=== PATIENT | male | born 1930 | race African-American/Black ===

== ENCOUNTER 2017-06-07 09:57 | Day surgery (SDC) | payer MEDICARE, BC ==
[~2017-06-07] VITALS: Ht 175.3 cm; Wt 61.7 kg
[~2017-06-07 09:57] MED LIST: ATEN-175 PO; ATOR20TA PO; CLOP75TA16 PO; COR3 PO; FAMO40TA7 PO; FERR1TAB51 PO; METO25TA6 PO; TOLT4CAP PO; VIAG100 PO
[2017-06-07] MEDS ORDERED: IODIXANOL 320MG/ML 100 ML BOTTLE IV ONE (11:16)
[2017-06-07] MEDS ORDERED: MIDAZOLAM HCL 2 MG/2 ML VIAL ONE (11:21)
[2017-06-07] MEDS ORDERED: FENTANYL CITRATE/PF 50MCG/ML 2ML VIAL ONE (11:21)
[2017-06-07] MEDS ORDERED: MORPHINE SULFATE 2 MG/ML CPJ (NOT FOR IM USE) IV PRN (14:00)
[2017-06-07] MEDS ORDERED: ACETAMINOPHEN 325MG TABLET PO PRN (14:00)
[2017-06-07] MEDS ORDERED: ONDANSETRON HCL 4MG/2ML VIAL IV PRN (14:00)
[2017-06-07] MEDS ORDERED: ATROPINE SULFATE 1MG/10ML SYR IV PRN (14:00)
== END 2017-06-07 18:30 | disposition home or self-care (01) ==
LOC: CCL 09:57
PROVIDERS: ATTEND Specialist
DX: I70.212 Atherosclerosis of native arteries of extremities with intermittent claudication, left leg (principal)
CPT/HCPCS: 36247; 75710; 99152; 99153; C1760; C1769; C1893; J1644; J2250; J3010; Q9967

== ENCOUNTER 2019-01-30 10:48 | Inpatient (IN) | payer MEDICARE, BC ==
[~2019-01-30] VITALS: Ht 170.2 cm; Wt 58.5 kg
[~2019-01-30 10:48] MED LIST changes: -CLOP75TA16 PO; +CLOP75TA4 PO
[2019-01-30] MEDS ORDERED: SODIUM CHLORIDE 0.45% 1,000 ML IV SCH (11:45)
[2019-01-30] MEDS ORDERED: NITROGLYCERIN 0.4MG TABLET SL SL ONE (11:59)
[2019-01-30] MEDS ORDERED: ASPI-1158 MT (12:10)
[2019-01-30] MEDS ORDERED: IODIXANOL 320MG/ML 100 ML BOTTLE IV ONE (12:38)
[2019-01-30] MEDS ORDERED: LIDOCAINE HCL 1% 20ML VIAL (Pyxis) INJ ONE (12:38)
[2019-01-30] MEDS ORDERED: MIDAZOLAM HCL 2 MG/2 ML VIAL ONE (13:26)
[2019-01-30] MEDS ORDERED: FENTANYL CITRATE/PF 50MCG/ML 2ML VIAL ONE (13:26)
[2019-01-30] MEDS ORDERED: HEPARIN SODIUM 1,000 UNIT/1ML VIAL IV ONE (14:00)
[2019-01-30] MEDS ORDERED: NITROGLYCERIN 50MCG/ML 10ML VIAL (CATH LAB) IV ONE (14:00)
[2019-01-30] MEDS ORDERED: NICARDIPINE 100MCG/ML 10ML VIAL (CATH LAB) IV ONE (14:00)
[2019-01-30] MEDS ORDERED: FUROSEMIDE 40MG/4ML VIAL ONE (14:25)
[2019-01-30] MEDS ORDERED: ATROPINE SULFATE 1MG/10ML SYR IV PRN (14:30)
[2019-01-30] MEDS ORDERED: ONDANSETRON HCL 4MG/2ML INJ IV PRN (14:30)
[2019-01-30] MEDS ORDERED: ACETAMINOPHEN 325MG TABLET PO PRN (14:30)
[2019-01-30 16:00] VITALS: BP 140/83
[2019-01-30] MEDS ORDERED: PANTOPRAZOLE SODIUM 40 MG/VIAL IV NR (16:00)
[2019-01-30 16:21] VITALS: BP 130/95
[2019-01-30 16:26] LABS: CHLORIDE 116 mEq/L (98-107)
[2019-01-30] MEDS ORDERED: SORBITOL 70% SOLN 30ML PO NR ×2 (16:30→20:30)
[2019-01-30 16:32] LABS: TOTAL IRON BINDING CAPACITY 366 ug/dL (250-450)
[2019-01-30 18:00] VITALS: BP 116/55
[2019-01-30 20:00] VITALS: BP 120/70
[2019-01-30] MEDS: CARVEDILOL 3.125 MG TABLET PO SCH (21:40)
[2019-01-30] MEDS: AMLODIPINE 2.5MG TABLET PO SCH (21:41)
[2019-01-30 22:00] VITALS: BP 133/73
[2019-01-31] VITALS (20 sets, daily range): BP systolic 94–168; BP diastolic 38–69
[2019-01-31] MEDS: SODIUM CHLORIDE 0.9% INJ 3ML FLUSH IVF SCH ×3 (06:00→22:30)
[2019-01-31 07:21] LABS: HEMATOCRIT. 23.4 % (42.0-52.0); HEMOGLOBIN. 7.4 g/dL (14.0-18.0); MEAN CORPUSCULAR VOLUME 100.6 fL (80.0-94.0); MEAN PLATELET VOLUME 8.4 fl (7.4-10.4); PLATELET 468 x1000/uL (130-400); RED BLOOD CELL COUNT 2.32 mill/uL (4.7-6.1); RED CELL DISTRIBUTION WIDTH 19.3 % (11.6-14.6)
[2019-01-31] MEDS: PANTOPRAZOLE SODIUM 40 MG/VIAL IV SCH (08:29)
[2019-01-31] MEDS: AMLODIPINE 2.5MG TABLET PO SCH ×2 (08:40→20:48)
[2019-01-31] MEDS: FUROSEMIDE 40MG/4ML VIAL IVP SCH (08:40)
[2019-01-31] MEDS: CARVEDILOL 3.125 MG TABLET PO SCH ×2 (08:41→20:47)
[2019-01-31] MEDS: LISINOPRIL 2.5MG TABLET PO SCH (08:41)
[2019-01-31] MEDS ORDERED: ASPIRIN 325MG TABLET PO SCH (09:00)
[2019-01-31 13:57] LABS: PLATELET ESTIMATE INCREASED
[2019-01-31] MEDS ORDERED: BACTERIOSTATIC SODIUM CHLORIDE 0.9% 30ML VIAL IJ ONE (15:23)
[2019-01-31] MEDS ORDERED: SIMETHICONE 40 MG/0.6 ML 30ML ONE (17:16)
[2019-01-31] MEDS ORDERED: MIDAZOLAM HCL 5 MG/5 ML VIAL ONE (17:33)
[2019-01-31] MEDS ORDERED: FENTANYL CITRATE/PF 50MCG/ML 2ML VIAL ONE (17:34)
[2019-01-31] MEDS ORDERED: MIDAZOLAM HCL 5 MG/5 ML VIAL IV PRN (17:36)
[2019-01-31] MEDS ORDERED: FUROSEMIDE 40MG/4ML VIAL IVP NR (18:00)
[2019-01-31] MEDS: FERROUS SULFATE 325MG TABLET PO SCH (20:45)
[2019-02-01] VITALS (7 sets, daily range): BP systolic 112–131; BP diastolic 48–68
[2019-02-01] MEDS: SODIUM CHLORIDE 0.9% INJ 3ML FLUSH IVF SCH (06:00)
[2019-02-01 06:27] LABS: BASOPHILS % 0.9 % (0.0-2.0); EOSINOPHILS % 3.2 % (0.0-5.0); HEMATOCRIT. 33.1 % (42.0-52.0); HEMOGLOBIN. 11.1 g/dL (14.0-18.0); LYMPHOCYTES % 7.9 % (20.0-50.0); MEAN CORPUSCULAR HEMOGLOBIN 30.1 pg (28.0-32.0); MEAN CORPUSCULAR VOLUME 89.7 fL (80.0-94.0); MEAN PLATELET VOLUME 7.9 fl (7.4-10.4); MONOCYTES % 10.4 % (2.0-8.0); NEUTROPHILS % 77.6 % (40.0-76.0); PLATELET 420 x1000/uL (130-400); RED BLOOD CELL COUNT 3.69 mill/uL (4.7-6.1); RED CELL DISTRIBUTION WIDTH 19.6 % (11.6-14.6)
[2019-02-01] MEDS: FUROSEMIDE 40MG/4ML VIAL IVP SCH (08:15)
[2019-02-01] MEDS: PANTOPRAZOLE SODIUM 40 MG/VIAL IV SCH (08:15)
[2019-02-01] MEDS: AMLODIPINE 2.5MG TABLET PO SCH (08:15)
[2019-02-01] MEDS: FERROUS SULFATE 325MG TABLET PO SCH (08:15)
[2019-02-01] MEDS: LISINOPRIL 2.5MG TABLET PO SCH (08:15)
[2019-02-01] MEDS: CARVEDILOL 3.125 MG TABLET PO SCH (08:16)
[2019-02-02] MEDS ORDERED: FAMOTIDINE 20MG TABLET PO SCH (09:00)
== END 2019-02-01 11:00 | disposition home or self-care (01) | DRG 286 ==
LOC: CCL 10:48 → 3WST 10:49
PROVIDERS: ADMIT Hospitalist; ATTEND Hospitalist
PROC: 4A023N7 Measurement of Cardiac Sampling and Pressure, Left Heart, Percutaneous Approach (ICD-10-PCS; principal; 2019-01-30)
PROC: B2111ZZ Fluoroscopy of Multiple Coronary Arteries using Low Osmolar Contrast (ICD-10-PCS; 2019-01-30)
PROC: B2151ZZ Fluoroscopy of Left Heart using Low Osmolar Contrast (ICD-10-PCS; 2019-01-30)
PROC: 0DB68ZX Excision of Stomach, Via Natural or Artificial Opening Endoscopic, Diagnostic (ICD-10-PCS; 2019-01-31)
PROC: 0DJD8ZZ Inspection of Lower Intestinal Tract, Via Natural or Artificial Opening Endoscopic (ICD-10-PCS; 2019-01-31)
PROC: 30233N1 Transfusion of Nonautologous Red Blood Cells into Peripheral Vein, Percutaneous Approach (ICD-10-PCS; 2019-01-31)
DX: I13.0 Hypertensive heart and chronic kidney disease with heart failure and stage 1 through stage 4 chronic kidney disease, or unspecified chronic kidney disease (principal); I50.23 Acute on chronic systolic (congestive) heart failure; K55.9 Vascular disorder of intestine, unspecified; I25.110 Atherosclerotic heart disease of native coronary artery with unstable angina pectoris; D50.9 Iron deficiency anemia, unspecified; E78.5 Hyperlipidemia, unspecified; I25.5 Ischemic cardiomyopathy; I27.20 Pulmonary hypertension, unspecified; I73.9 Peripheral vascular disease, unspecified; J44.9 Chronic obstructive pulmonary disease, unspecified; K44.9 Diaphragmatic hernia without obstruction or gangrene; K64.8 Other hemorrhoids; K29.50 Unspecified chronic gastritis without bleeding; K57.30 Diverticulosis of large intestine without perforation or abscess without bleeding; N18.9 Chronic kidney disease, unspecified; N40.0 Benign prostatic hyperplasia without lower urinary tract symptoms; Z82.49 Family history of ischemic heart disease and other diseases of the circulatory system; Z87.891 Personal history of nicotine dependence; Z95.5 Presence of coronary angioplasty implant and graft; Z79.899 Other long term (current) drug therapy; Z79.82 Long term (current) use of aspirin
CPT/HCPCS: 36415; 80048; 80076; 82140; 82728; 83540; 83550; 86850; 86900; 86920; 88305; 88313; 93005; 93458; 99152; C1769; C1893; C9113; J1644; J1940; J2250; J2405; J3010; J3490; L1830; P9016; Q9967; G0500

== ENCOUNTER 2019-03-25 14:38 | Inpatient (IN) | payer MEDICARE, BC ==
[~2019-03-25] VITALS: Ht 170.2 cm; Wt 59.0 kg
[~2019-03-25 14:38] MED LIST changes: +ASPI-1158 MT; -ATEN-175 PO; -ATOR20TA PO; -CLOP75TA4 PO; -COR3 PO; -FAMO40TA7 PO; -METO25TA6 PO; -VIAG100 PO
[2019-03-25] MEDS ORDERED: SODIUM CHLORIDE 0.9% 1,000 ML IV ONE (15:13)
[2019-03-25 15:56] LABS: BASOPHILS % 2.3 % (0.0-2.0); EOSINOPHILS % 6.4 % (0.0-5.0); LYMPHOCYTES % 9.7 % (20.0-50.0); MEAN CORPUSCULAR HEMOGLOBIN 30.7 pg (28.0-32.0); MEAN CORPUSCULAR VOLUME 96.5 fL (80.0-94.0); MEAN PLATELET VOLUME 8.6 fl (7.4-10.4); MONOCYTES % 9.3 % (2.0-8.0); NEUTROPHILS % 72.3 % (40.0-76.0); PLATELET 370 x1000/uL (130-400); RED BLOOD CELL COUNT 2.22 mill/uL (4.7-6.1); RED CELL DISTRIBUTION WIDTH 18.4 % (11.6-14.6)
[2019-03-25 15:57] LABS: CHLORIDE 112 mEq/L (98-107)
[2019-03-25 16:01] LABS: PROTHROMBIN TIME 10.7 sec (9.6-11.0)
[2019-03-25 16:07] LABS: HEMOGLOBIN. 6.8 g/dL (14.0-18.0)
[2019-03-25 16:12] LABS: HEMATOCRIT. 21.5 % (42.0-52.0)
[2019-03-25] MEDS ORDERED: DEXT 5%/0.45% NACL 1000ML 1,000 ML IV SCH ×2 (17:07→22:45)
[2019-03-25] MEDS ORDERED: DOCUSATE SODIUM 100MG CAPSULE PO PRN (17:15)
[2019-03-25] MEDS ORDERED: FERROUS SULFATE 325MG TABLET PO SCH (17:15)
[2019-03-25] MEDS ORDERED: ONDANSETRON HCL 4MG/2ML INJ IV PRN (17:15)
[2019-03-25] MEDS ORDERED: MAGNESIUM/ALUMINUM HYDROXIDE/SIMETHICONE 30ML UDC PO PRN (17:15)
[2019-03-25] MEDS ORDERED: ACETAMINOPHEN 325MG TABLET PO PRN (17:15)
[2019-03-25] MEDS ORDERED: MULTIVITAMINS,THER W-MINERALS TABLET PO SCH (17:15)
[2019-03-25] MEDS ORDERED: LORAZEPAM 2MG/ML CPJ IV PRN (17:15)
[2019-03-25] MEDS ORDERED: PANTOPRAZOLE SODIUM 40 MG/VIAL IV SCH (17:30)
[2019-03-25 17:49] LABS: CLARITY URINE TURBID (CLEAR); COLOR URINE YELLOW (YELLOW); KETONES URINE NEGATIVE (NEGATIVE); LEUKOCYTE ESTERASE URINE 3+ (NEGATIVE); NITRITE URINE NEGATIVE (NEGATIVE); OCCULT BLOOD URINE TRACE (NEGATIVE); PH URINE 5.5 (4.5-8.0); PROTEIN URINE TRACE (NEGATIVE); SPECIFIC GRAVITY URINE 1.017 (1.005-1.030); UROBILINOGEN URINE 0.2 E.U./dL (0.2-1.0)
[2019-03-25] MEDS ORDERED: CEFTRIAXONE 1 G PREMIX 50 ML IV NR (18:45)
[2019-03-25 22:45] VITALS: BP 124/60
[2019-03-25 23:00] VITALS: BP 139/58
[2019-03-25 23:15] VITALS: BP 130/68
[2019-03-25 23:30] VITALS: BP 135/65
[2019-03-25 23:42] VITALS: BP 122/63
[2019-03-26] MEDS ORDERED: MULTIVITAMINS,THER W-MINERALS TABLET PO SCH (09:00)
[2019-03-26] MEDS ORDERED: PANTOPRAZOLE SODIUM 40 MG/VIAL IV SCH (09:00)
[2019-03-26] MEDS ORDERED: ASPIRIN 81MG EC TABLET PO SCH (09:00)
[2019-03-26] MEDS ORDERED: FERROUS SULFATE 325MG TABLET PO SCH (09:00)
== END 2019-03-26 03:58 | disposition left against medical advice (07) | DRG 73 ==
LOC: ER 14:38 → 7WST 16:27 → EDBEDREQ 16:42 → EDBEDREQTM 16:42 → SUPCPDRO 17:06 → ENRESERV 19:43
PROVIDERS: ADMIT Hospitalist; ATTEND Hospitalist
PROC: 30233N1 Transfusion of Nonautologous Red Blood Cells into Peripheral Vein, Percutaneous Approach (ICD-10-PCS; principal; 2019-03-25)
DX: G90.8 Other disorders of autonomic nervous system (principal); E43 Unspecified severe protein-calorie malnutrition; R64 Cachexia; I95.9 Hypotension, unspecified; F17.200 Nicotine dependence, unspecified, uncomplicated; I11.9 Hypertensive heart disease without heart failure; I25.10 Atherosclerotic heart disease of native coronary artery without angina pectoris; I25.5 Ischemic cardiomyopathy; Z53.21 Procedure and treatment not carried out due to patient leaving prior to being seen by health care provider; I73.9 Peripheral vascular disease, unspecified; J44.9 Chronic obstructive pulmonary disease, unspecified; R62.7 Adult failure to thrive; Z82.3 Family history of stroke; Z82.49 Family history of ischemic heart disease and other diseases of the circulatory system; Z87.19 Personal history of other diseases of the digestive system; Z95.5 Presence of coronary angioplasty implant and graft; Z99.3 Dependence on wheelchair; Z68.20 Body mass index [BMI] 20.0-20.9, adult; Z95.820 Peripheral vascular angioplasty status with implants and grafts
CPT/HCPCS: 36415; 71045; 81003; 82962; 84484; 86850; 86900; 86920; 87077; 87186; 93005; 93970; 96374; 99285; J0696; J7030; P9016

== ENCOUNTER 2019-04-28 14:06 | Inpatient (IN) | payer MEDICARE, BC ==
[~2019-04-28] VITALS: Ht 175.3 cm; Wt 58.5 kg
[2019-04-28 14:54] LABS: EOSINOPHILS % 3.3 % (0.0-5.0); HEMATOCRIT. 26.3 % (42.0-52.0); HEMOGLOBIN. 8.5 g/dL (14.0-18.0); LYMPHOCYTES % 7.7 % (20.0-50.0); MEAN CORPUSCULAR HEMOGLOBIN 29.8 pg (28.0-32.0); MEAN CORPUSCULAR VOLUME 91.9 fL (80.0-94.0); MEAN PLATELET VOLUME 8.2 fl (7.4-10.4); MONOCYTES % 8.2 % (2.0-8.0); NEUTROPHILS % 78.8 % (40.0-76.0); PLATELET 507 x1000/uL (130-400); RED BLOOD CELL COUNT 2.86 mill/uL (4.7-6.1); RED CELL DISTRIBUTION WIDTH 15.5 % (11.6-14.6)
[2019-04-28 15:00] LABS: CHLORIDE 111 mEq/L (98-107)
[2019-04-28] MEDS ORDERED: MORPHINE SULFATE 4 MG/ML CPJ (NOT FOR IM USE) IV STA (15:34)
[2019-04-28] MEDS ORDERED: ONDANSETRON HCL 4MG/2ML INJ IV STA (15:34)
[2019-04-28] MEDS ORDERED: ENOXAPARIN 100MG/ML SYR SUBCUT ONE (15:45)
[2019-04-28] MEDS ORDERED: NITROGLYCERIN 0.1MG/HR PATCH TOP ONE (17:15)
[2019-04-28] MEDS ORDERED: PIPERACILLIN/TAZ 3.375G PREMIX 50 ML IV ONE (18:30)
[2019-04-28] MEDS ORDERED: VANCOMYCIN 1 G PREMIX 200 ML IV ONE (18:30)
[2019-04-28 22:00] VITALS: BP 122/84
[2019-04-28] MEDS ORDERED: DOCUSATE SODIUM 100MG CAPSULE PO PRN (22:15)
[2019-04-28] MEDS ORDERED: ONDANSETRON HCL 4MG/2ML INJ IV PRN (22:15)
[2019-04-28] MEDS ORDERED: MAGNESIUM/ALUMINUM HYDROXIDE/SIMETHICONE 30ML UDC PO PRN (22:15)
[2019-04-28] MEDS ORDERED: CLONIDINE 0.1MG TABLET PO PRN (22:15)
[2019-04-28] MEDS ORDERED: HYDROCODONE/ACETAMINOPHEN 5/325MG TABLET PO PRN (22:15)
[2019-04-28] MEDS ORDERED: ACETAMINOPHEN 325MG TABLET PO PRN (22:15)
[2019-04-28] MEDS ORDERED: MORPHINE SULFATE 2 MG/ML CPJ (NOT FOR IM USE) IV PRN (22:44)
[2019-04-28 23:23] VITALS: BP 122/84
[2019-04-29] VITALS (16 sets, daily range): BP systolic 102–125; BP diastolic 52–68
[2019-04-29 06:52] LABS: MEAN CORPUSCULAR HEMOGLOBIN 30.1 pg (28.0-32.0); MEAN CORPUSCULAR VOLUME 93.8 fL (80.0-94.0); MEAN PLATELET VOLUME 8.7 fl (7.4-10.4); PLATELET 416 x1000/uL (130-400); RED BLOOD CELL COUNT 2.28 mill/uL (4.7-6.1)
[2019-04-29 06:58] LABS: CHLORIDE 113 mEq/L (98-107)
[2019-04-29 07:10] LABS: CREATINE KINASE MB FRACTION 37.1 ng/mL (0.5-3.6)
[2019-04-29 07:11] LABS: CREATINE KINASE 169 IU/L (39-308)
[2019-04-29 07:54] LABS: HEMATOCRIT. 21.4 % (42.0-52.0); HEMOGLOBIN. 6.9 g/dL (14.0-18.0)
[2019-04-29] MEDS ORDERED: ASPIRIN 81MG EC TABLET PO SCH (09:00)
[2019-04-29] MEDS ORDERED: AMLODIPINE 10MG TABLET PO SCH (09:00)
[2019-04-29] MEDS ORDERED: ENOXAPARIN 40MG/0.4ML SYR SUBCUT SCH (09:00)
[2019-04-29 09:16] LABS: NUCLEATED RED BLOOD CELLS 1 /100 WBC
[2019-04-29 09:17] LABS: PLATELET ESTIMATE SLIGHTLY INCREASED
[2019-04-29] MEDS ORDERED: PANTOPRAZOLE SODIUM 40 MG/VIAL IV SCH (09:30)
[2019-04-29] MEDS ORDERED: DIPHENHYDRAMINE 25MG CAPSULE PO SCH (13:15)
[2019-04-29] MEDS ORDERED: ACETAMINOPHEN 325MG TABLET PO SCH (13:15)
[2019-04-29] MEDS: NITROGLYCERIN OINT 1GM/INCH UDPKT TD SCH ×2 (14:24→22:09)
[2019-04-29 15:13] LABS: CLARITY URINE CLEAR (CLEAR); COLOR URINE YELLOW (YELLOW); KETONES URINE NEGATIVE (NEGATIVE); LEUKOCYTE ESTERASE URINE NEGATIVE (NEGATIVE); NITRITE URINE NEGATIVE (NEGATIVE); OCCULT BLOOD URINE NEGATIVE (NEGATIVE); PROTEIN URINE NEGATIVE (NEGATIVE); SPECIFIC GRAVITY URINE 1.021 (1.005-1.030); UROBILINOGEN URINE 0.2 E.U./dL (0.2-1.0)
[2019-04-29 16:42] LABS: CREATINE KINASE MB FRACTION 27.8 ng/mL (0.5-3.6)
[2019-04-29 21:57] LABS: HEMATOCRIT 29.4 % (42.0-52.0); HEMOGLOBIN 9.5 g/dL (14.0-18.0)
[2019-04-30] VITALS: BP 97/50
[2019-04-30 02:00] VITALS: BP 118/63
[2019-04-30 04:00] VITALS: BP 101/51
[2019-04-30] MEDS: NITROGLYCERIN OINT 1GM/INCH UDPKT TD SCH (06:00)
[2019-04-30 06:58] LABS: BASOPHILS % 2.4 % (0.0-2.0); EOSINOPHILS % 2.9 % (0.0-5.0); HEMATOCRIT. 25.2 % (42.0-52.0); HEMOGLOBIN. 8.5 g/dL (14.0-18.0); LYMPHOCYTES % 7.6 % (20.0-50.0); MEAN CORPUSCULAR HEMOGLOBIN 31.5 pg (28.0-32.0); MEAN CORPUSCULAR VOLUME 93.1 fL (80.0-94.0); MEAN PLATELET VOLUME 8.7 fl (7.4-10.4); MONOCYTES % 7.9 % (2.0-8.0); NEUTROPHILS % 79.2 % (40.0-76.0); PLATELET 444 x1000/uL (130-400); RED BLOOD CELL COUNT 2.71 mill/uL (4.7-6.1); RED CELL DISTRIBUTION WIDTH 15.1 % (11.6-14.6)
[2019-04-30] MEDS ORDERED: AMLODIPINE 2.5MG TABLET PO SCH (09:00)
== END 2019-04-30 07:10 | disposition left against medical advice (07) | DRG 280 ==
LOC: ER 14:06 → 3WST 15:34 → EDBEDREQSVC 15:40 → EDBEDREQ 15:40 → ENRESERV 20:20
PROVIDERS: ADMIT Hospitalist; ATTEND Hospitalist
PROC: 30233N1 Transfusion of Nonautologous Red Blood Cells into Peripheral Vein, Percutaneous Approach (ICD-10-PCS; principal; 2019-04-29)
DX: I21.4 Non-ST elevation (NSTEMI) myocardial infarction (principal); E43 Unspecified severe protein-calorie malnutrition; I50.33 Acute on chronic diastolic (congestive) heart failure; I13.0 Hypertensive heart and chronic kidney disease with heart failure and stage 1 through stage 4 chronic kidney disease, or unspecified chronic kidney disease; I50.20 Unspecified systolic (congestive) heart failure; Z68.1 Body mass index [BMI] 19.9 or less, adult; E61.1 Iron deficiency; D72.829 Elevated white blood cell count, unspecified; D64.9 Anemia, unspecified; N18.9 Chronic kidney disease, unspecified; I25.5 Ischemic cardiomyopathy; E78.5 Hyperlipidemia, unspecified; Z53.29 Procedure and treatment not carried out because of patient's decision for other reasons; I25.10 Atherosclerotic heart disease of native coronary artery without angina pectoris; I25.82 Chronic total occlusion of coronary artery; I73.9 Peripheral vascular disease, unspecified; J44.9 Chronic obstructive pulmonary disease, unspecified; K57.30 Diverticulosis of large intestine without perforation or abscess without bleeding; Z79.899 Other long term (current) drug therapy; Z87.19 Personal history of other diseases of the digestive system; Z87.891 Personal history of nicotine dependence; Z95.5 Presence of coronary angioplasty implant and graft; Z99.3 Dependence on wheelchair; Z79.82 Long term (current) use of aspirin
CPT/HCPCS: 36415; 71045; 80048; 81003; 82550; 82553; 82728; 83540; 83550; 83880; 84484; 85014; 85018; 86850; 86900; 86920; 93005; 93306; 93970; 99291; C9113; J1650; J2270; J2405; J2543; J3370; P9016